=== PATIENT | female | born 1970 | race African-American/Black ===

== ENCOUNTER → 2017-05-12 | Outpatient (CLI) | payer OTHER ==
[2017-05-12 12:24] LABS: ALANINE AMINOTRANSFERASE 42 U/L (9-52); ALBUMIN 4.1 g/dL (3.5-5.0); ALKALINE PHOSPHATASE 54 U/L (38-126); ASPARTATE AMINO TRANSFERASE 22 U/L (14-36); BILIRUBIN,DIRECT 0.4 mg/dL (0.0-0.4); BILIRUBIN,TOTAL 0.5 mg/dL (0.2-1.3); CHOLESTEROL 143.59 mg/dL (0-200); CREATINE KINASE 128 U/L (30-135); TOTAL PROTEIN 6.8 g/dL (6.3-8.2); TRIGLYCERIDES 82 mg/dL (<150)
[2017-05-12 12:35] LABS: DIRECT LDL 63 mg/dL (<100)
== END ==
LOC: OD 10:57
PROVIDERS: ATTEND Internal Medicine Cardiovascular Disease
DX: E78.00 Pure hypercholesterolemia, unspecified (principal); R25.2 Cramp and spasm; Z79.899 Other long term (current) drug therapy
CPT/HCPCS: 36415; 80061; 80076; 82550

== ENCOUNTER → 2017-12-29 | Outpatient (CLI) | payer OTHER ==
--- NOTE | 2017-12-29 15:24 | RADIOLOGY REPORT (SQ) ---
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 TECHNIQUE: CT scan of the chest performed using helical scanning technique with dynamic intravenous contrast injection. Images reviewed with lung, soft tissue and bone windows. Reconstructed coronal and sagittal MPR and MIP images reviewed. All images stored on PACS. All CT scanners at this facility use dose modulation, iterative reconstruction, and/or weight based d osing when appropriate to reduce radiation dose to as low as reasonably achievable (ALARA). [facility]: Dose Right [facility]: CareDose [facility]: Dose Right [facility]: Teradose 4D [facility]: [employer] CONTRAST TYPE AND DOSE: contrast/concentration: Isovue 350.00 mg/ml; Total Contrast Delivered: 80.0 ml; Total Saline Delivered: 55.0 ml Patient was pre-medicated due to history of contrast allergy. RENAL FUNCTION: GFR > 60. RADIATION DOSE: CT Rad equipment meets quality standard of care and radiation dose reduction techniq ues were employed. CTDIvol: 13.0 mGy. DLP: 501 mGy-cm. . LIMITATIONS: None. FINDINGS: LUNGS AND PLEURA: No opacities, nodules, masses. No pneumothorax. No effusions. HILAR AND MEDIASTINAL STRUCTURES: No identified masses or abnormal nodes. HEART AND VASCULAR STRUCTURES: There is an abnormal soft tissue density along the right wall of the I VC, series 2 image 36, series 601, image 56 measuring about 2.7 x 2.0 cm in AP by transverse diameter . There may be extension into the right atrium, however mixing artifact limits evaluation. HARDWARE: None in the chest. UPPER ABDOMEN: Subcentimeter low-density hepatic lesions which are too small to characterize. THYROID AND OTHER SOFT TISSUES: Multiple clips anterior chest wall and right axilla. BONES: No significant finding. OTHER: No other significant finding. IMPRESSION: Abnormality in the IVC with possible extension into the right atrium. Correlation with echocardiography may be of benefit. TECHNICAL DOCUMENTATION: JOB ID: [id number] Quality ID # [id number]: Final reports with documentation of one or more dose reduction techniques (e.g., Au tomated exposure control, adjustment of the mA and/or kV according to patient size, use of iterative reconstruction technique) 2010 [employer]- All Rights Reserved Reading location - IP/workstation name: [email or web address]
--- NOTE | 2017-12-29 16:02 | RADIOLOGY REPORT (SQ) ---
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 RADIONUCLIDE AND DOSE: 21.9 millicuries Tc99m MDP. The route of agent administration: Intravenous. ADDITIONAL DRUGS AND DOSES: None. TECHNIQUE: Routine delayed images at 3 hour post radionuclide injection acquired of the bony skeleto n including anterior and posterior whole-body projections and additional focused images as needed. LIMITATIONS: None. FINDINGS: BONES: Normal visualization without significant areas of photopenia or increased bony upta ke of radiopharmaceutical. KIDNEYS: Symmetric excretion without obstruction. OTHER: No other significant finding. IMPRESSION: No evidence of metastatic disease. COMMENT: Quality measure 147: No available prior imaging studies for comparison TECHNICAL DOCUMENTATION: JOB ID: [id number] [employer]- All Rights Reserved Reading location - IP/workstation name: [email or web address]
== END ==
LOC: RAD 09:49
PROVIDERS: ATTEND Internal Medicine
DX: C50.211 Malignant neoplasm of upper-inner quadrant of right female breast (principal)
CPT/HCPCS: 78306; 71260; A9561

== ENCOUNTER → 2018-01-07 | Outpatient (CLI) | payer OTHER ==
--- NOTE | 2018-01-08 09:12 | RADIOLOGY REPORT (SQ) ---
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 TECHNIQUE: Multiplanar multisequence imaging performed without and with contrast including sagittal, axial and coronal T2, axial T1, axial gradient fat sat T1, axial, sagittal and coronal fat sat T1 po st contrast. CONTRAST TYPE AND DOSE: 20 mL Dotarem. RENAL FUNCTION: Creatinine 1.1 LIMITATIONS: Motion. FINDINGS: LIVER: Several benign cysts measuring up to just over 1 cm. No solid mass. No biliary di latation. SPLEEN: Normal size. No focal lesions. PANCREAS: No masses. No adjacent inflammation or peripancreatic fluid collections. Pancreatic duct no t dilated. GALLBLADDER: No masses. No stones. No gallbladder wall thickening or pericholecystic fluid. ADRENAL GLANDS: No significant masses or asymmetry. RIGHT KIDNEY AND URETER: No masses. No hydronephrosis. LEFT KIDNEY AND URETER: No masses. No hydronephrosis. AORTA AND VESSELS: No aneurysm. RETROPERITONEUM: No retroperitoneal adenopathy, hemorrhage or masses. BOWEL: No visualized masses. No inflammation. No significant dilatation. ABDOMINAL WALL AND PERITONEUM: No hernias. No free fluid. BONES: No acute or significant findings. OTHER: No other significant finding. IMPRESSION: No evidence of pancreatic mass or metastatic disease. TECHNICAL DOCUMENTATION: JOB ID: [id number] [employer]- All Rights Reserved Reading location - IP/workstation name: [email or web address]
--- NOTE | 2018-01-08 09:28 | RADIOLOGY REPORT (SQ) ---
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 TECHNIQUE: Multiplanar multisequence imaging performed without and with contrast including axial, sa gittal and coronal T2, axial T, axial gradient fat sat T1, axial, sagittal and coronal fat sat T2 pos t contrast. CONTRAST TYPE AND DOSE: 20 mL Dotarem. RENAL FUNCTION: Creatinine 1.1 LIMITATIONS: Motion. FINDINGS: BLADDER AND URETHRA: Normal. PELVIC SOFT TISSUES: Normal. No adenopathy. UTERUS: Surgically absent. RIGHT OVARY: Not visualized. LEFT OVARY: Not visualized. FREE FLUID: None. PELVIC SKELETAL STRUCTURES: No abnormal marrow signal. EXTRA PELVIS SOFT TISSUES: No masses. OTHER: No other significant finding. IMPRESSION: NORMAL FEMALE PELVIC MRI WITH AND WITHOUT CONTRAST. TECHNICAL DOCUMENTATION: JOB ID: [id number] [employer]- All Rights Reserved Reading location - IP/workstation name: [email or web address]
== END ==
LOC: RAD 19:49
PROVIDERS: ATTEND Internal Medicine
DX: C50.211 Malignant neoplasm of upper-inner quadrant of right female breast (principal); K76.89 Other specified diseases of liver
CPT/HCPCS: 72197; 74183; 82565

== ENCOUNTER 2019-01-05 03:18 | Emergency (ER) | payer SELFPAY ==
[2019-01-05] MEDS ORDERED: METOCLOPRAMIDE HCL 10 MG TABLET PO ONE (04:51)
[2019-01-05] MEDS ORDERED: KETOROLAC TROMETHAMINE 60 MG/2 ML SDV IM ONE (04:51)
[2019-01-05] MEDS ORDERED: BUTALB/ACETAMINOPHEN/CAFFEINE 1 TAB EACH PO ONE (04:51)
[2019-01-05 07:26] VITALS: BP 115/87
--- NOTE | 2019-01-06 08:04 | EKG REPORT ---
SEVERITY:- NORMAL ECG - SINUS RHYTHM : Confirmed by: Morgan Ingram MD 06-Jan-2019 08:03:55
== END 2019-01-05 07:27 | disposition left against medical advice (07) ==
LOC: ER 03:18
DX: Z53.21 Procedure and treatment not carried out due to patient leaving prior to being seen by health care provider (principal)
CPT/HCPCS: J3490

== ENCOUNTER 2019-07-15 18:45 | Emergency (ER) | payer BC ==
--- NOTE | 2019-07-15 19:00 | ER Document Report ---
ED Medical Screen (RME) - General Chief Complaint: Toe Injury Stated Complaint: POSSIBLE BROKEN TOE Notes: Patient is a 48-year-old -[place] female who presents to the emergency department the chief complaint of left second toe pain after an injury that occurred just prior to arrival. The patient reports that she was running up some steps to the house to try to get away from some dogs when she lost her footing tripping. She states when she got to the house she noticed some pain of the left second toe, she looked down and noticed the second toe was shorter and painful than the rest. Denies any numbness tingling or weakness. I have treated and performed a rapid initial assessment of this patient. A comprehensive ED assessment and evaluation of the patient, analysis of test results and completion of medical decision making process will be conducted by additional ED providers. PHYSICAL EXAMINATION: GENERAL: Well-appearing, well-nourished and in no acute distress. A&Ox4. Answers questions appropriately. TRAVEL OUTSIDE OF THE [place] IN LAST 30 DAYS: No - Related Data Allergies/Adverse Reactions: hydrocodone bitartrate [From Vicodin] Allergy (Severe, Verified 01/05/19 04:57) N/V iodine [Iodine] Allergy (Severe, Verified 01/05/19 04:57) Itching nalbuphine HCl [From Nubain] Allergy (Severe, Verified 01/05/19 04:57) "Sick to Stomach", Itching Shellfish * [Shellfish] Allergy (Severe, Verified 01/05/19 04:57) Vomiting, Itching oxycodone HCl [From Percocet] Adverse Reaction (Intermediate, Verified 01/05/19 04:57) Nausea Past Medical History - Past Medical History Cardiac Medical History: Denies: Hx Coronary Artery Disease, Hx Heart Attack, Hx Hypertension Pulmonary Medical History: Denies: Hx Asthma, Hx Bronchitis, Hx COPD, Hx Pneumonia Neurological Medical History: Reports: Hx Migraine. Denies: Hx Cerebrovascular Accident, Hx Seizures Malignancy Medical History: Reports: Hx Breast Cancer - With mastectomy, 2010. Musculoskeltal Medical History: Denies Hx Arthritis Psychiatric Medical History: Reports: Hx Depression Past Surgical History: Reports: Hx Breast Surgery - breast reconstruction, Hx Hysterectomy, Hx Mastectomy - bilateral. Denies: Hx Pacemaker - Immunizations Hx Diphtheria, Pertussis, Tetanus Vaccination: Yes
--- NOTE | 2019-07-15 19:34 | RADIOLOGY REPORT (SQ) ---
EXAM DESCRIPTION: FOOT LEFT COMPLETE IMAGES COMPLETED DATE/TIME: 07/15/2019 7:23 pm REASON FOR STUDY: ? dislocated MTP left 2nd COMPARISON: None. NUMBER OF VIEWS: Three views. TECHNIQUE: AP, lateral and oblique radiographic images acquired of the left foot. LIMITATIONS: None. FINDINGS: MINERALIZATION: Normal. BONES: Dislocation of the seconds metatarsal phalangeal joint. There is an oblique fracture of the b ase of the proximal phalanx of the 1st digit. Oblique fracture distal 3rd metatarsal. JOINTS: No effusions. SOFT TISSUES: No soft tissue swelling. No foreign body. OTHER: No other significant finding. IMPRESSION: Dislocation seconds metatarsal phalangeal joint. Oblique fracture base of the proximal phalanx of the 1st digit. Oblique fracture distal 3rd metatarsal. TECHNICAL DOCUMENTATION: JOB ID: [id number] 2010 [employer]- All Rights Reserved Reading location - IP/workstation name: [email or web address]
[2019-07-15] MEDS ORDERED: MORPHINE SULFATE 10 MG/ML INJ IV ONE (20:14)
[2019-07-15] MEDS ORDERED: IBUPROFEN 600 MG TABLET PO ONE (20:14)
[2019-07-15] MEDS ORDERED: ONDANSETRON HCL INJ/PF 4 MG/2 ML SDV IV ONE (20:14)
[2019-07-15] MEDS ORDERED: LIDOCAINE 1% INJ (10 MG/ML) 10 ML MDV INJ ONE (21:12)
[2019-07-15] MEDS ORDERED: BUPIVACAINE HCL 0.75% INJ/PF (7.5 MG/1 ML) 10 ML SDV INJ ONE (21:12)
[2019-07-15] MEDS ORDERED: HYDROMORPHONE HCL INJ/PF 2 MG/ML AMPULE IV ONE (21:12)
--- NOTE | 2019-07-15 21:31 | ER Document Report ---
ED Extremity Problem, Lower - General Chief Complaint: Toe Injury Stated Complaint: POSSIBLE BROKEN TOE Time Seen by Provider: 07/15/19 20:47 Primary Care Provider: MAKAYLA BRAVO MD [ACTIVE STAFF] - Follow up tomorrow Notes: Patient is a 48-year-old female that comes emergency department for chief complaint of injury to her left foot. She states that she was being chased by her neighbor's dogs, she attempted to run up her steps into her house to get away from them, she states she tripped in doing so and believes she struck her foot on the stair. She states that she started having throbbing pain and noticed that the second toe seemed shorter than the others and more painful. She denies any numbness or tingling, she states that she is starting to get some soreness in her upper back and she also has an abrasion to her right elbow. She denies any other injuries. She denies falling onto the ground or head injury. She is not on blood thinner. TRAVEL OUTSIDE OF THE [place] IN LAST 30 DAYS: No - Related Data Allergies/Adverse Reactions: hydrocodone bitartrate [From Vicodin] Allergy (Severe, Verified 01/05/19 04:57) N/V iodine [Iodine] Allergy (Severe, Verified 01/05/19 04:57) Itching nalbuphine HCl [From Nubain] Allergy (Severe, Verified 01/05/19 04:57) "Sick to Stomach", Itching Shellfish * [Shellfish] Allergy (Severe, Verified 01/05/19 04:57) Vomiting, Itching oxycodone HCl [From Percocet] Adverse Reaction (Intermediate, Verified 01/05/19 04:57) Nausea Past Medical History - General Information source: Patient - Social History Smoking Status: Never Smoker Frequency of alcohol use: None Drug Abuse: None Lives with: Family Family History: Reviewed & Not Pertinent Patient has suicidal ideation: No Patient has homicidal ideation: No - Past Medical History Cardiac Medical History: Denies: Hx Coronary Artery Disease, Hx Heart Attack, Hx Hypertension Pulmonary Medical History: Denies: Hx Asthma, Hx Bronchitis, Hx COPD, Hx Pneumonia Neurological Medical History: Reports: Hx Migraine. Denies: Hx Cerebrovascular Accident, Hx Seizures Malignancy Medical History: Reports: Hx Breast Cancer - With mastectomy, 2010. Musculoskeletal Medical History: Denies Hx Arthritis Psychiatric Medical History: Reports: Hx Depression Past Surgical History: Reports: Hx Breast Surgery - breast reconstruction, Hx Hysterectomy, Hx Mastectomy - bilateral. Denies: Hx Pacemaker - Immunizations Hx Diphtheria, Pertussis, Tetanus Vaccination: Yes Review of Systems - Review of Systems Constitutional: No symptoms reported EENT: No symptoms reported Cardiovascular: No symptoms reported Respiratory: No symptoms reported Gastrointestinal: No symptoms reported Genitourinary: No symptoms reported Female Genitourinary: No symptoms reported Musculoskeletal: See HPI Skin: No symptoms reported Hematologic/Lymphatic: No symptoms reported Neurological/Psychological: No symptoms reported Physical Exam - Vital signs Vitals: Temp Pulse Resp BP Pulse Ox 98.4 F 85 20 135/84 H 98 07/15/19 23:53 07/15/19 23:53 07/15/19 23:53 07/15/19 23:53 07/15/19 23:53 - Notes Notes: GENERAL: Alert, interacts well. No acute distress. HEAD: Normocephalic, atraumatic. EYES: Pupils equal, round, and reactive to light. Extraocular movements intact. ENT: Oral mucosa moist, tongue midline. Oropharynx unremarkable. Airway patent. NECK: Full range of motion. Supple. Trachea midline. No lymphadenopathy. LUNGS: Clear to auscultation bilaterally, no wheezes, rales, or rhonchi. No respiratory distress. Non-tender chest wall. HEART: Regular rate and rhythm. No murmur ABDOMEN: Soft, non-tender. Non-distended. Bowel sounds present in all 4 quadrants. GENITOURINARY: Deferred EXTREMITIES: Soft tissue swelling noted over the distal dorsal aspect of the left foot, second toe appears to be dislocated and slightly shortened and there is significant tenderness in this area. Sensation intact. Capillary refill of all toes and sensation of all toes and over the foot is intact. Dorsalis pedis normal. No open wounds. Normal ankle, leg, knee, hip exam. Unremarkable extremities otherwise except for a small abrasion over the right elbow with no bony tenderness and full range of motion. BACK: There is tenderness to the right upper back in the trapezius distribution just medial and tracking up along the scapula. No cervical, thoracic, lumbar midline tenderness. No signs of trauma. No saddle anesthesia, normal distal neurovascular exam. Moves all extremities in full range of motion. NEUROLOGICAL: Alert and oriented x3. Normal speech. Cranial nerves II through XII grossly intact. Strength 5/5 in all extremities. PSYCH: Normal affect, normal mood. SKIN: Warm, dry, normal turgor. No rashes or lesions noted. Course - Re-evaluation Re-evalutation: Patient with fracture dislocation of the left second toe at the MTP, avulsion fracture only. Avulsion fracture also of the first phalanx and also of the MTP of the third phalanx. No open wounds. No other injuries except for an abrasion over the right elbow, there is no bony tenderness, discussed with patient but decision was made not to perform x-ray because we have low suspicion of fracture. Patient does have some pain in the right shoulder and trapezius muscle area, no midline tenderness of the neck, no focal numbness or weakness, no trauma to the head or back. Patient was provided with muscle relaxers in regards to this. I discussed options with patient, decision was made to medicate her first for pain and then for anxiety, she will have a digital block and then reduction of the MTP of the second left toe, then she will be provided with pain medication and follow-up with orthopedics after we place a splint. Patient states understanding and agreement with plan. Patient tolerated the reduction very well, repeat x-ray shows successful reduction with avulsion fracture. Toes were oscar taped. Splint was carefully placed. Provided with crutches. Discussed expectations, follow-up, return precautions. Patient states understanding and agreement with plan. - Vital Signs Vital signs: Temp Pulse Resp BP Pulse Ox 98.4 F 85 20 135/84 H 98 07/16/19 00:07/16/19 00:07/16/19 00:17 07/16/19 00:07/16/19 00:17 Procedures - Immobilization left foot Pre-Proc Neuro Vasc Exam: Normal Immobilizer type: Posterior ankle Performed by: Provider assisted, PCT Post-Proc Neuro Vasc Exam: Normal Alignment checked and good: Yes Notes: Oscar taping was performed for all 3 toes (first, second, third phalanxes of the left foot), immobilization provided with posterior ankle splint, provided with crutches - Joint Reduction/Fracture Care Left second MTP joint Consent obtained: Yes Conscious sedation: No Pre-procedure NV exam: Yes Fracture: Closed Manipulation comment: Distracted away and then pulled forward Post-procedure NV exam: Yes Post-reduction x-ray: Joint reduced. No: No fracture seen - Avulsion fracture at the base, already present prior Reduction attempts: 1 Complications: No Notes: Area was cleaned thoroughly with alcohol swabs before a total of 8 mL's of mixed 1% lidocaine and 0.5% bupivacaine were placed on the sides in a digital block. Excellent anesthesia was obtained. Toe was grasped, distracted, then pulled forward. Toe repositioned back into the normal location without difficulty. X- ray confirmed fracture reduction. No complications. Patient tolerated very well. Discharge - Discharge Clinical Impression: Dislocation of metatarsophalangeal joint Qualifiers: Encounter type: initial encounter Qualified Code(s): S93.129A - Dislocation of metatarsophalangeal joint of unspecified toe(s), initial encounter Toe fracture, left Qualifiers: Encounter type: initial encounter Toe: unspecified toe Fracture type: closed Fracture alignment: nondisplaced Qualified Code(s): S92.912A - Unspecified fracture of left toe(s), initial encounter for closed fracture Condition: Stable Disposition: HOME, SELF-CARE Additional Instructions: You had a dislocation in the joint called the metatarsal phalangeal joint at the second toe, you also have fractures in the great toe and in the third toe attachment called the metatarsal. Take the pain medication as prescribed if needed, wear the splint, use the crutches. You will likely have muscle spasms in your shoulders, I recommend heat, rest, and the muscle relaxer Robaxin as prescribed. The symptoms should simply resolve with time after worsening for a couple of days. Call the orthopedics referral tomorrow to set up your close follow-up and additional management. Return for any concerning symptoms including severe swelling or pain. Prescriptions: Morphine Sulfate [Morphine Ir 15 Mg Tablet] 15 mg PO TID PRN #12 tablet PRN Reason: Methocarbamol [Robaxin-750] 750 mg PO QID PRN #20 tablet PRN Reason: Forms: Return to Work Referrals: MAKAYLA BRAVO MD [ACTIVE STAFF] - Follow up tomorrow
[2019-07-15] MEDS ORDERED: LORAZEPAM INJ 2 MG/1 ML VIAL IV ONE (22:21)
--- NOTE | 2019-07-16 00:06 | RADIOLOGY REPORT (SQ) ---
EXAM DESCRIPTION: XR FOOT 1-2 VIEWS COMPLETED DATE/TME: 07/15/2019 23:16 CLINICAL HISTORY: 48 years, Female, post reduction COMPARISON: 07/15/2019 left foot at 2022 NUMBER OF VIEWS: 2 TECHNIQUE: 2 views of the left foot LIMITATIONS: None. FINDINGS: Small avulsed fracture fragment associated with the base of the proximal phalanx of the first digit. Reduction of the second MTP dislocation. Grossly stable of old fracture fragment associated with the proximal phalanx of the second digit as well as fracture of the distal third metatarsal. Residual soft tissue swelling. IMPRESSION: Reduction of the second MTP dislocation. Stable fracture deformities. Residual soft tissue swelling copyright 2010 [employer]- All Rights Reserved
[2019-07-16 00:18] VITALS: BP 135/84
== END 2019-07-15 23:53 | disposition home or self-care (01) ==
LOC: ER 18:45
PROC: 0QSPXZZ Reposition Left Metatarsal, External Approach (ICD-10-PCS; principal; 2019-07-15)
DX: S93.125A Dislocation of metatarsophalangeal joint of left lesser toe(s), initial encounter (principal); S92.912A Unspecified fracture of left toe(s), initial encounter for closed fracture; S99.922A Unspecified injury of left foot, initial encounter; M54.6 Pain in thoracic spine; W18.40XA Slipping, tripping and stumbling without falling, unspecified, initial encounter; Z88.8 Allergy status to other drugs, medicaments and biological substances
CPT/HCPCS: 99283; 96374; 96375; 73630; 73620; 28475; J3490; J2270; J1170; J2060; J2405